=== PATIENT | female | born 1965 | race Caucasian/White ===

== ENCOUNTER 2021-09-05 13:47 | Inpatient (IN) | payer OTHER ==
[2021-09-05] MEDS ORDERED: ONDANSETRON *ODT* 4 MG TABLET SL PRN (18:51)
[2021-09-05] MEDS ORDERED: NALOXONE (NARCAN) HCL 4 MG/0.1 ML SPRAY NS PRN (18:51)
[2021-09-05] MEDS ORDERED: methaDONE HCL 10 MG TABLET (FOR DETOX USE ONLY) PO ONE (18:51)
[2021-09-05] MEDS ORDERED: MAGNESIUM HYDROX 2400MG/30ML ORAL SUSPENSION 30 ML CUP PO PRN (18:51)
[2021-09-05] MEDS ORDERED: METHOCARBAMOL 500 MG TABLET PO PRN (18:51)
[2021-09-05] MEDS ORDERED: MAGNESIUM CITRATE 300 ML BOTTLE PO PRN (18:51)
[2021-09-05] MEDS ORDERED: cloNIDine HCL 0.1 MG TABLET PO PRN (18:51)
[2021-09-05] MEDS ORDERED: MENTHOL/PHENOL 1 EACH UD MM PRN (18:51)
[2021-09-05] MEDS ORDERED: BISMUTH SUBSALICYLATE 524 MG/30 ML PO PRN (18:51)
[2021-09-05] MEDS ORDERED: ACETAMINOPHEN 325 MG TABLET (FP) PO PRN ×2 (18:51)
[2021-09-05] MEDS ORDERED: IBUPROFEN 400 MG TABLET (FP) PO PRN (18:51)
[2021-09-05] MEDS ORDERED: MAG HYDROX/AL HYDROX/SIMETH 30 ML UNIT-DOSE CUP PO PRN (18:51)
[2021-09-05] MEDS ORDERED: diazePAM 5 MG TABLET PO PRN (22:18)
[2021-09-05 22:27] VITALS: BMI 21.6
[2021-09-05] MEDS ORDERED: diazePAM 5 MG TABLET ONE ×2 (22:36→22:39)
[2021-09-05] MEDS ORDERED: methaDONE HCL 10 MG TABLET (FOR DETOX USE ONLY) ONE (22:37)
[2021-09-05] MEDS: MELATONIN 5 MG TABLETS PO SCH (22:42)
[2021-09-05] MEDS: THIAMINE HCL 100 MG TABLET (FP) PO SCH (22:42)
[2021-09-05] MEDS: diazePAM 5 MG TABLET PO SCH (22:42)
[2021-09-06] MEDS ORDERED: diazePAM 5 MG TABLET ONE ×2 (06:59→10:40)
[2021-09-06] MEDS: diazePAM 5 MG TABLET PO SCH ×4 (07:00→22:01)
[2021-09-06] MEDS ORDERED: methaDONE HCL 10 MG TABLET (FOR DETOX USE ONLY) ONE (10:40)
[2021-09-06] MEDS: PRENATAL VITAMINS W/ FOLIC ACID TABLET (FP) PO SCH (12:54)
[2021-09-06] MEDS: NICOTINE 21 MG/24 HOURS TOPICAL PATCH TD SCH (12:54)
[2021-09-06] MEDS: NICOTINE 10 MG CARTRIDGE (INHALER) IH PRN ×3 (13:42→22:01)
[2021-09-06] MEDS: hydrOXYzine PAMOATE 25 MG CAPSULE (FP) PO PRN ×2 (17:32→22:00)
[2021-09-06] MEDS: MELATONIN 5 MG TABLETS PO SCH (22:00)
[2021-09-06] MEDS: THIAMINE HCL 100 MG TABLET (FP) PO SCH (22:00)
[2021-09-07] MEDS ORDERED: diazePAM 5 MG TABLET PO SCH (06:00)
[2021-09-07 06:13] VITALS: BP 111/73; PULSE 63; TEMP 96.4
[2021-09-07] MEDS ORDERED: methaDONE HCL 10 MG TABLET (FOR DETOX USE ONLY) PO ONE (10:00)
[2021-09-07] MEDS: NICOTINE 21 MG/24 HOURS TOPICAL PATCH TD SCH (11:41)
[2021-09-07] MEDS: PRENATAL VITAMINS W/ FOLIC ACID TABLET (FP) PO SCH (11:41)
[2021-09-08] MEDS ORDERED: diazePAM 5 MG TABLET PO SCH (06:00)
[2021-09-09] MEDS ORDERED: diazePAM 5 MG TABLET PO ONE (06:00)
[2021-09-09] MEDS ORDERED: methaDONE HCL 10 MG TABLET (FOR DETOX USE ONLY) PO ONE (10:00)
== END 2021-09-07 10:23 | disposition left against medical advice (07) | DRG 770 ==
LOC: YASAS 13:47 → Y3N 09-06 11:47
PROVIDERS: ADMIT Allergy & Immunology; ATTEND Allergy & Immunology
PROC: HZ2ZZZZ Detoxification Services for Substance Abuse Treatment (ICD-10-PCS; principal; 2021-09-06)
DX: F11.23 Opioid dependence with withdrawal (principal); F14.20 Cocaine dependence, uncomplicated; F17.210 Nicotine dependence, cigarettes, uncomplicated; Z56.0 Unemployment, unspecified
CPT/HCPCS: C9803; J0735; U0003; U0005